=== PATIENT | male | born 1985 | race Caucasian/White ===

== ENCOUNTER 2017-02-18 20:06 | Emergency (ER) | payer BC ==
[~2017-02-18] VITALS: Ht 175.3 cm; Wt 90.7 kg
--- OUTSIDE RECORDS SUMMARY | 2017-02-18 20:12 | XMS REPORT | Continuity of Care Document ---
Author Author [facility] Organization [facility] Address Unknown Phone Unavailable Allergies Medications Problems Date Dx Coded Attending Type Code Diagnosis Diagnosed By 09/04/2015 ZULEIMA HATFIELD PRODUCT DEVELOPMENT TECHNICIAN Ot R04.2 HEMOPTYSIS 09/04/2015 ZULEIMA HATFIELD PRODUCT DEVELOPMENT TECHNICIAN Ot R11.2 NAUSEA WITH VOMITING, UNSPECIFIED 09/06/2015 ALYSIAZULEIMA PRODUCT DEVELOPMENT TECHNICIAN Ot R04.2 HEMOPTYSIS 09/06/2015 ZULEIMA HATFIELD PRODUCT DEVELOPMENT TECHNICIAN Ot R11.2 NAUSEA WITH VOMITING, UNSPECIFIED 09/14/2015 Ot R05 COUGH 09/14/2015 ZULEIMA HATFIELD R PRODUCT DEVELOPMENT TECHNICIAN Ot R04.2 HEMOPTYSIS 09/14/2015 ZULEIMA HATFIELD PRODUCT DEVELOPMENT TECHNICIAN Ot R11.2 NAUSEA WITH VOMITING, UNSPECIFIED 11/06/2015 Ot R05 COUGH 11/06/2015 ALYSIA, ZULEIMA R PRODUCT DEVELOPMENT TECHNICIAN Ot R04.2 HEMOPTYSIS 11/06/2015 ALYSIA, ZULEIMA R PRODUCT DEVELOPMENT TECHNICIAN Ot R11.2 NAUSEA WITH VOMITING, UNSPECIFIED 01/05/2016 Ot R05 COUGH 01/05/2016 ZULEIMA HATFIELD R PRODUCT DEVELOPMENT TECHNICIAN Ot R04.2 HEMOPTYSIS 01/05/2016 ZULEIMA HATFIELD R PRODUCT DEVELOPMENT TECHNICIAN Ot R11.2 NAUSEA WITH VOMITING, UNSPECIFIED Procedures Results Encounters ACCT No. Visit Date/Time Discharge Status Pt. Type Provider Facility Loc./Unit Complaint [id number] 08/30/2015 17:20:00 2015 23:59:59 CLS Outpatient ZULEIMA HATFIELD APRN [facility] LAB CBC,CMP [id number] 08/30/2015 10:29:00 Document Registration
[2017-02-18 20:40] LABS: BASOPHILS # (AUTO) 0.1 10^3/uL (0.0-0.1); BASOPHILS % (AUTO) 1 % (0-10); EOSINOPHILS # (AUTO) 0.2 10^3/uL (0.0-0.3); EOSINOPHILS % (AUTO) 2 % (0-10); LYMPHOCYTES # (AUTO) 3.8 X 10^3 (1.0-4.0); LYMPHOCYTES % (AUTO) 47 % (12-44); MEAN CORPUSCULAR HEMOGLOBIN 27 PG (25-34); MEAN CORPUSCULAR HGB CONC 34 G/DL (32-36); MEAN CORPUSCULAR VOLUME 77 FL (80-99); MEAN PLATELET VOLUME 10.6 FL (7.4-10.4); MONOCYTES # (AUTO) 0.6 X 10^3 (0.0-1.0); MONOCYTES % (AUTO) 8 % (0-12); NEUTROPHILS # (AUTO) 3.5 X 10^3 (1.8-7.8); NEUTROPHILS % (AUTO) 43 % (42-75); PLATELET COUNT 269 10^3/uL (130-400); RED BLOOD COUNT 5.63 10^6/uL (4.35-5.85); RED CELL DISTRIBUTION WIDTH 14.2 % (10.0-14.5); WHITE BLOOD COUNT 8.1 10^3/uL (4.3-11.0)
[2017-02-18] MEDS ORDERED: ASPIRIN 81 MG CHEW (CHILDREN'S ASA) PO ONE (20:45)
[2017-02-18] MEDS ORDERED: NITROGLYCERIN 0.4 MG SL TABS BTL 25'S SL PRN (20:45)
[2017-02-18] MEDS ORDERED: ALPRAZolam 0.5 MG (XANAX) TAB PO SCH (20:45)
[2017-02-18] MEDS ORDERED: KETOROLAC 30 MG/ML VIAL IVP ONE (20:45)
[2017-02-18 20:50] LABS: INR 0.9 (0.8-1.4); PROTHROMBIN TIME PATIENT 12.4 SEC (12.2-14.7)
[2017-02-18 21:01] LABS: ALANINE AMINOTRANSFERASE 28 U/L (0-55); ALBUMIN 4.2 GM/DL (3.2-4.5); ANION GAP 10 MMOL/L (5-14); ASPARTATE AMINO TRANSFERASE 23 U/L (5-34); BILIRUBIN,TOTAL 0.4 MG/DL (0.1-1.0); BLOOD UREA NITROGEN 18 MG/DL (7-18); BUN/CREATININE RATIO 19; CALCIUM 9.4 MG/DL (8.5-10.1); CARBON DIOXIDE 26 MMOL/L (21-32); CHLORIDE 106 MMOL/L (98-107); CREATININE SERUM 0.97 MG/DL (0.60-1.30); GFR ESTIMATED > 60; GLUCOSE 102 MG/DL (70-105); MAGNESIUM 2.2 MG/DL (1.8-2.4); SODIUM 142 MMOL/L (135-145); TOTAL PROTEIN 7.5 GM/DL (6.4-8.2)
[2017-02-18 21:07] LABS: MYOGLOBIN SERUM 54.4 NG/ML (10.0-92.0)
--- NOTE | 2017-02-18 21:16 | Diagnostic Imaging Report ---
INDICATION: Chest pain COMPARISON: 08/30/2015 FINDINGS: Single frontal view of the chest is obtained. Heart size is normal. The pulmonary vessels appear unremarkable. There is no pneumothorax, mediastinal widening or pleural fluid demonstrated. The lungs are clear. IMPRESSION: Negative chest Dictated by: Dictated on workstation # [id number]
--- NOTE | 2017-02-18 21:29 | ED Chest Pain ---
General Chief Complaint: Chest Pain Stated Complaint: CHEST PAIN X2 DAYS Source: patient Exam Limitations: no limitations History of Present Illness Time seen by provider: 20:10 Initial Comments To ER with reports of chest pain described as a tightness sensation. He does not identify any alleviating or worsening factors. This is been constant since yesterday morning. He has had troubles with chest pain in the past when he was in the he had a general checkup done and states that he was told he had an "triple bundle branch block". He has never required any interventions such as coronary catheterization or echocardiogram. This pain tonight was very intense and concerned him so he came to the emergency room. He also feels short of breath and a little anxious. His is one of our hospital pharmacists and she suggested he be evaluated. He denies any palpitations, syncope or near syncope. He does not know any family history of heart disease. Timing/Duration: 4-6 hours Severity/Quality: moderate Location: central Radiation: no radiation Activities at Onset: none ASA po MARBLE HELPER: No NTG SL MARBLE HELPER: No Allergies and Home Medications Allergies Coded Allergies: No Known Drug Allergies (Unverified , 02/18/17) Review of Systems Constitutional: see HPI EENTM: No Symptoms Reported Respiratory: No Symptoms Reported Cardiovascular: See HPI, Chest Pain Gastrointestinal: No Symptoms Reported Genitourinary: No Symptoms Reported Musculoskeletal: no symptoms reported Skin: no symptoms reported Psychiatric/Neurological: No Symptoms Reported Endocrine: No Symptoms Reported Past Tfoznoy-Dnedie-Elbzrb Hx Patient Social History Recent Foreign Travel: No Contact w/Someone Who Travel: No Physical Exam Vital Signs Vital Sign - Last 12Hours 02/18/17 20:11 Temp 96.5 Pulse 72 Resp 16 B/P (MAP) 149/83 Pulse Ox 96 O2 Delivery Room Air Capillary Refill : General Appearance: No Apparent Distress, WD/WN HEENT: PERRL/EOMI, TMs Normal Neck: Full Range of Motion, Normal Inspection Respiratory: Lungs Clear, Normal Breath Sounds, No Accessory Muscle Use, No Respiratory Distress Cardiovascular: Regular Rate, Rhythm, Normal Peripheral Pulses Gastrointestinal: Non Tender, Soft Extremity: Normal Capillary Refill, Normal Inspection Neurologic/Psychiatric: Alert, Oriented x3, No Motor/Sensory Deficits Skin: Normal Color, Warm/Dry Progress/Results/Core Measures Results/Orders Lab Results Laboratory Tests Test 02/18/17 20:30 Range/Units White Blood Count 8.1 4.3-11.0 10^3/uL Red Blood Count 5.63 4.35-5.85 10^6/uL Hemoglobin 14.9 13.3-17.7 G/DL Hematocrit 44 40-54 % Mean Corpuscular Volume 77 L 80-99 FL Mean Corpuscular Hemoglobin 27 25-34 PG Mean Corpuscular Hemoglobin Concent 34 32-36 G/DL Red Cell Distribution Width 14.2 10.0-14.5 % Platelet Count 269 130-400 10^3/uL Mean Platelet Volume 10.6 H 7.4-10.4 FL Neutrophils (%) (Auto) 43 42-75 % Lymphocytes (%) (Auto) 47 H 12-44 % Monocytes (%) (Auto) 8 0-12 % Eosinophils (%) (Auto) 2 0-10 % Basophils (%) (Auto) 1 0-10 % Neutrophils # (Auto) 3.5 1.8-7.8 X 10^3 Lymphocytes # (Auto) 3.8 1.0-4.0 X 10^3 Monocytes # (Auto) 0.6 0.0-1.0 X 10^3 Eosinophils # (Auto) 0.2 0.0-0.3 10^3/uL Basophils # (Auto) 0.1 0.0-0.1 10^3/uL Prothrombin Time 12.4 12.2-14.7 SEC INR Comment 0.9 0.8-1.4 Activated Partial Thromboplast Time 25 24-35 SEC D-Dimer 0.31 0.00-0.49 UG/ML Sodium Level 142 135-145 MMOL/L Potassium Level 4.0 3.6-5.0 MMOL/L Chloride Level 106 98-107 MMOL/L Carbon Dioxide Level 26 21-32 MMOL/L Anion Gap 10 5-14 MMOL/L Blood Urea Nitrogen 18 7-18 MG/DL Creatinine 0.97 0.60-1.30 MG/DL Estimat Glomerular Filtration Rate > 60 BUN/Creatinine Ratio 19 Glucose Level 102 70-105 MG/DL Calcium Level 9.4 8.5-10.1 MG/DL Magnesium Level 2.2 1.8-2.4 MG/DL Total Bilirubin 0.4 0.1-1.0 MG/DL Aspartate Amino Transf (AST/SGOT) 23 5-34 U/L Alanine Aminotransferase (ALT/SGPT) 28 0-55 U/L Alkaline Phosphatase 78 40-136 U/L Myoglobin 54.4 10.0-92.0 NG/ML Troponin I < 0.30 <0.30 NG/ML Total Protein 7.5 6.4-8.2 GM/DL Albumin 4.2 3.2-4.5 GM/DL My Orders Orders - JC SILVA APRN Fibrin Degradation Products (02/18/17 20:39) Alprazolam Tablet (Xanax Tablet) (02/18/17 20:45) Ketorolac Injection (Toradol Injection) (02/18/17 20:45) Ct Angio Chest W (02/18/17 21:25) Albuterol Pre-Mix Nebs (Rt) (Proventil P (02/18/17 22:30) Medications Given in ED Current Medications Medications Dose Ordered Sig/Jose Antonio Route Start Time Stop Time Status Last Admin Dose Admin Aspirin 324 mg ONCE ONCE PO 02/18/17 20:45 02/18/17 20:46 DC 02/18/17 20:56 324 MG Ketorolac Tromethamine 30 mg ONCE ONCE IVP 02/18/17 20:45 02/18/17 20:46 DC 02/18/17 20:56 30 MG Nitroglycerin 1 TAB Q 5 MIN X 3 NEEDED PRN SL 02/18/17 20:45 02/18/17 20:57 0.4 MG Vital Signs/I&O Vital Sign - Last 12Hours 02/18/17 20:11 Temp 96.5 Pulse 72 Resp 16 B/P (MAP) 149/83 Pulse Ox 96 O2 Delivery Room Air ECG Initial ECG Impression Date: Feb 18, 2017 Initial ECG Impression Time: 20:11 Initial ECG Rate: 76 Initial ECG Rhythm: Normal Sinus Initial ECG Intervals: Normal Initial ECG Impression: Normal Diagnostic Imaging Diagonstic Imaging: Xray Plain Films/CT/US/NM/MRI: chest Comments NAME: XIAO CASTANO MED REC#: [id number] PT STATUS: REG ER : 1985 PHYSICIAN: JC SILVA APRN ADMIT DATE: 02/18/17/ER Signed Date of Exam:02/18/17 CT ANGIO CHEST W PROCEDURE: CT angiography of the chest with contrast. TECHNIQUE: Multiple contiguous axial images were obtained through the chest after uneventful bolus administration of intravenous contrast. Reconstructed CTA MIP acquisitions were also performed. INDICATION: Chest pain COMPARISON: None FINDINGS: There is no evidence of pulmonary embolus or other acute vascular abnormality. There is no pneumothorax, pleural effusion or pericardial effusion. There is no adenopathy. The lungs are clear. There is mild diffuse hepatic steatosis. Visualized upper abdomen is otherwise unremarkable. No acute osseous abnormality is demonstrated. IMPRESSION: No evidence of pulmonary embolus or other acute abnormality in the chest. Dictated by: Dictated on workstation # [id number] Dict: 02/18/172201 Trans: 02/18/172206 [facility] [id number] Interpreted by: SOM HATFIELD DO Electronically signed by: SOM HATFIELD DO 02/18/172206 Departure Communication (Admissions) Progress Notes 2219-patient states that he feels quite a bit better after the Xanax but still has some tightness in his chest and dyspnea. All of his labs EKG and CT angiogram are unremarkable. We will try an albuterol nebulized treatment prior to discharge. I will have him call Dr. Traore tomorrow morning to make an appointment for follow-up. Impression Impression: Primary Impression: Chest pain Qualified Codes: R07.9 - Chest pain, unspecified Disposition: 01 HOME, SELF-CARE Condition: Stable Departure-Patient Inst. Decision time for Depature: 22:20 Referrals: NO,LOCAL PHYSICIAN (PCP/Family) Primary Care Physician Patient Instructions: Chest Pain (DC) Add. Discharge Instructions: 1. Please call Dr. Traore tomorrow morning to make an appointment to be seen for further evaluation 2. Please return to the emergency room for any worsening or intolerable pain or shortness of breath. Work/School Note: Work Release Form Date Seen in the Emergency Department: Feb 18, 2017 Return to Work: Feb 20, 2017 Copy Copies To 1: TRAY DARNELL MD FACP FAC JC PAEZ APRN Feb 18, 2017 21:29
--- NOTE | 2017-02-18 22:07 | Diagnostic Imaging Report ---
PROCEDURE: CT angiography of the chest with contrast. TECHNIQUE: Multiple contiguous axial images were obtained through the chest after uneventful bolus administration of intravenous contrast. Reconstructed CTA MIP acquisitions were also performed. INDICATION: Chest pain COMPARISON: None FINDINGS: There is no evidence of pulmonary embolus or other acute vascular abnormality. There is no pneumothorax, pleural effusion or pericardial effusion. There is no adenopathy. The lungs are clear. There is mild diffuse hepatic steatosis. Visualized upper abdomen is otherwise unremarkable. No acute osseous abnormality is demonstrated. IMPRESSION: No evidence of pulmonary embolus or other acute abnormality in the chest. Dictated by: Dictated on workstation # [id number]
[2017-02-18] MEDS ORDERED: RT-ALBUTEROL SULF 2.5 MG/3 ML PRE-MIX VIAL IH SCH (22:30)
[2017-02-18 22:36] VITALS: BP 109/63
== END 2017-02-18 22:36 | disposition home or self-care (01) ==
LOC: EDUNIT# 20:06 → ER 20:09
DX: R07.89 Other chest pain (principal)
CPT/HCPCS: 36415; 71010; 71275; 80053; 83735; 83874; 84484; 85025; 85379; 85610; 85730; 93005; 93041; 94640; 94664; 96374